=== PATIENT | female | born 1960 | race Caucasian/White ===

== ENCOUNTER 2017-04-09 08:23 | Outpatient (CLI) | payer BC ==
[~2017-04-09] VITALS: Ht 165.1 cm; Wt 98.6 kg
--- NOTE | ~2017-04-09 | HEMODYNAMI ---
PATIENT:ZURDO HAMMOND MEDICAL RECORD: [id number] : 56 LOCATION:[facility] ADMISSION DATE: 04/09/17 Generatedon:04/09/201711:23 Patient name: ZURDO HAMMOND Patient #: [id number] SSN: : 1960 Date of study: 04/09/2017 Page: Of Hemodynamic Procedure Report Patient Data Patient Demographics Procedure consent was obtained First Name: ZURDO Gender: Female Last Name: STEPHANY : 1960 [facility] Initial: ROSIO Age: 57 year(s) Patient #: [id number] Race: Unknown Additional ID: [id number] Contact details Address: [address] [place] [address] [facility] State: [place] City: [place] Zip code: [address] Past Medical History Allergies Allergen Reaction Date Comments Reported Other allergy 04/09/2017 Cipro Admission Admission Data Admission Date: 04/09/2017 Admission Time: 8:23 Height (in.): 65 BSA: 2.04 (m2) Height (cm.): 165.1 BMI: 35.78 (kg/m2) Weight (lbs.): 215 Weight (kg.): 97.52 Procedure Procedure Types Cath Procedure Diagnostic Procedure C [facility] w/Coronaries Miscellaneous Procedures Moderate Sedation up to 15 minutes Procedure Description Procedure Date Procedure Date: 04/09/2017 Procedure Start Time: 11:13 Procedure End Time: 11:20 Procedure Staff Name Function Issa Jimenez MD Performing Physician Halima Sanders RT Scrub Angella Taylor RN Nurse Quoc Venegas RN Director Of Staff Development Pauline Carty RT Monitor Procedure Data Cath Procedure Fluoroscopy Diagnostic fluoroscopy Total fluoroscopy Time: 0.6 time: 0.6 min min Diagnostic fluoroscopy Total fluoroscopy dose: 195 dose: 195 mGy mGy Contrast Material Contrast Material Type Amount (ml) Isovue 300 45 Entry Location Entry Primary Successful Side Size Upsize Upsize Entry Closure Succes sful Closure Location (Fr) 1 (Fr) 2 (Fr) Remarks Device Remarks Femoral Right 5 Fr Exoseal artery Estimated blood loss: 10 ml Diagnostic catheters Device Type Used For End Catheter Placement Cordis 5Fr JL 4.0 Procedure Catheter (MP) Cordis 5Fr Pigtail Ventriculography Catheter (MP) Cordis 5Fr 3DRC Catheter Procedure (MP) Procedure Complications No complications Procedure Medications Medication Administration Route Dosage Oxygen NC 2 l/min Lidocaine 2% added to field 20 Heparin Flush Bag added to field 2 bags (1000units/500ml NS) 0.9% NaCl I.V. 100 ml/hr Versed I.V. 1 mg Fentanyl I.V. 50 mcg Versed I.V. 1 mg Fentanyl I.V. 50 mcg Versed I.V. 1 mg Fentanyl I.V. 50 mcg Fentanyl I.V. 50 mcg Hemodynamics Rest BSA: 2.04 (m2) O2 Consumption: Estimated: 200.16 (ml/min) O2 Consumption indexed : Estimated:98.12 (ml/min/m) Heart Rate: 78 (bpm) Snapshots Pre Cath Intra NCS Post Cath Vital Signs Time Heart Resp SPO2 NIBP (mmHg) Rhythm Pain Sedation Rate (ipm) (%) Status Level (bpm) 10:57:16 78 16 100 144/92(107) NSR 0 (11) 10(A) , No pain 11:01:32 75 15 100 128/79(107) NSR 0 (11) 10(A) , No pain 11:05:44 75 19 93 113/69(105) NSR 0 (11) 10(A) , No pain 11:09:54 67 17 99 111/74(90) NSR 0 (11) 10(A) , No pain 11:14:04 64 16 95 116/73(108) NSR 0 (11) 9(A) , No pain 11:18:20 82 16 95 108/58(81) NSR 0 (11) 9(A) , No pain 11:22:52 69 8 98 98/64(87) NSR 0 (11) 10(A) , No pain Medications Time Medication Route Dose Verified Delivered Reason Notes Effe ctiveness by by 11:02:58 Oxygen NC 2 Issa Perales used for l/min Barbara Taylor liquor rectifier 11:03:08 Lidocaine 2% added 20ml Issa Parsons for local to vial Barbara Jimenez MD anesthetic field 11:03:15 Heparin Flush added 2 Issa Issa used for Bag to bags Barbara Jimenez MD procedure (1000units/500ml field NS) 11:03:24 0.9% NaCl I.V. 100 Issamary Garibayie Per ml/hr Barbara Taylor RN physician 11:08:58 Versed I.V. 1 mg Issa Buffie for Barbara Taylor RN sedation 11:09:03 Fentanyl I.V. 50 Issa Buffie for mcg Barbara Taylor RN sedation 11:11:00 Versed I.V. 1 mg Issa Buffie for Barbara Taylor RN sedation 11:11:04 Fentanyl I.V. 50 Issa Buffie for mcg Barbara Taylor RN sedation 11:15:39 Versed I.V. 1 mg Issa Buffie for Barbara Taylor RN sedation 11:15:43 Fentanyl I.V. 50 Issa Buffie for mcg Barbara Taylor RN sedation 11:18:37 Fentanyl I.V. 50 Issa Buffie for mcg Barbara Taylor RN sedation Procedure Log Time Note 10:54:15 Patient Height : 165.1 cm 10:54:20 Patient Weight : 97.52 kg 10:54:56 Diagnostic Cath status Elective 10:54:58 Quoc Venegas RN sent for patient. Start room use. 10:54:59 Time tracking: Regular hours 10:55:04 Plan of Care:Hemodynamics will remain stable., Cardiac rhythm will remain stable., Comfort level will be maintained., Respiratory function will remain adequate., Patient/ family verbilizes understanding of procedure., Procedure tolerated without complication., Recovers from procedure without complications.. 10:56:09 Patient received from Pre/Post Procedure Room to CCL 2 Alert and oriented. Tansferred to table in Supine position. 10:56:10 Warm blankets applied, and mich hugger turned on for patient comfort. 10:56:11 Correct patient and procedure confirmed by team. 10:56:13 Signed procedure consent form obtained from patient. 10:56:14 ECG and BP/O2 sat monitors applied to patient. 10:56:14 Vital chart was started 10:56:16 Baseline sample Acquired. 10:56:18 Full Disclosure recording started 10:56:28 H&P Date Dictated: 04/08/2017 Within 30 days and on chart., H&P Addendum completed by physician on day of procedure. (MUST COMPLETE FOR ALL OUTPATIENTS). 10:56:30 Pre-procedure instructions explained to patient. 10:56:32 Family in waiting room. 10:56:33 Patient NPO since Midnight. 10:56:50 Patient allergic to Other allergyCipro 10:56:55 Is the patient allergic to Iodine/contrast media? No. 10:56:57 Is patient on blood thinner?No 11:00:42 Patient diabetic? No. 11:00:50 Snore? No 11:00:52 Sleep apnea? No 11:01:01 Patient pain scale 0/10 ?. 11:01:10 IV patent on arrival in left forearm with 0.9% NaCl at [facility]. 11:01:17 Lab results completed and on chart. 11:01:21 Right groin area was prepped with chlora-prep and draped in sterile fashion 11:01:27 Alarms reviewed by R. N. 11::28 Sharps counted by scrub and verified by R.N. 11:01:28 Physician paged 11:02:58 Oxygen 2 l/min NC was administered by Angella Taylor RN; used for procedure; 11:03:08 Lidocaine 2% 20ml vial added to field was administered by Issa Jimenez MD; for local anesthetic; 11:03:15 Heparin Flush Bag (1000units/500ml NS) 2 bags added to field was administered by Issa Jimenez MD; used for procedure; 11:03:24 0.9% NaCl 100 ml/hr I.V. was administered by Angella Taylor RN; Per physician; 11:04:37 Use device set Femoral Dx 11:04:38 Acist Syringe opened to sterile field. 11:04:39 Bag Decanter opened to sterile field. 11:04:39 Medline Cath Pack opened to sterile field. 11:04:40 Terumo 5Fr [place] Sheath opened to sterile field. 11:04:41 St Wes 260cm J .035 wire opened to sterile field. 11:04:43 Acist Hand Control opened to sterile field. 11:04:44 Acist Manifold opened to sterile field. 11:04:44 Diagnostic Infinity 5Fr Multipack catheter opened to sterile field. 11:04:45 Tegaderm 4 x 4 opened to sterile field. 11:07:41 Physician arrived 11:08:20 Zero performed for pressure channel P1 11:08:24 Zero performed for pressure channel P1 11::37 --------ALL STOP TIME OUT------ 11::38 Final Timeout: patient, procedure, and site verified with staff and physician. All members of the team are in agreement. 11:08:40 Right groin site verified by team. 11:08:44 Sedation plan: IV Moderate Sedation Versed, Fentanyl 11::58 Versed 1 mg I.V. was administered by Angella Taylor RN; for sedation; 11:09:03 Fentanyl 50 mcg I.V. was administered by Angella Taylor RN; for sedation; 11:11:00 Versed 1 mg I.V. was administered by Angella Taylor RN; for sedation; 11:11:04 Fentanyl 50 mcg I.V. was administered by Angella Taylor RN; for sedation; 11:13:07 Procedure started. 11:13:29 Local anesthetic to right femoral artery with Lidocaine 2% by Issa Jimenez MD.INITIAL ACCESS ONLY 11:14:34 A 5 Fr sheath was inserted into the Right Femoral artery 11:15:29 A Cordis 5Fr JL 4.0 Catheter (MP) was advanced over the wire and used for Procedure. 11:15:39 Versed 1 mg I.V. was administered by Angella Taylor RN; for sedation; 11:15:42 A Cordis 5Fr Pigtail Catheter (MP) was advanced over the wire and used for Ventriculography. 11:15:43 Fentanyl 50 mcg I.V. was administered by Angella Taylor RN; for sedation; 11:15:48 Catheter removed. 11:16:03 A Cordis 5Fr 3DRC Catheter (MP) was advanced over the wire and used for Procedure. 11:16:10 EF : 55 % 11:16:58 Catheter removed. 11:18:20 Cordis 5Fr Exoseal opened to sterile field. 11:18:37 Fentanyl 50 mcg I.V. was administered by Angella Taylor RN; for sedation; 11:18:37 Sheath removed intact; hemostasis achieved with Exoseal to the Right Femoral artery. 11:18:41 Procedure ended.(Physican Out) 11:19:14 Fluoroscopy time 00.60 minutes. 11:19:21 Fluoroscopy dose: 195 mGy 11:19:21 Flurop Dose total: 195 11:19:24 Contrast amount:Isovue 300 45ml. 11:19:26 Sharps counted by scrub and verified by R.N. 11:19:28 Insertion/operative site no bleeding no hematoma. 11:19:38 Post-op/insertion site Right Femoral artery dressed using a 4 x 4 and Tegaderm. 11:19:41 Post right femoral artery:stable 11:19:45 Post Procedure Pulses reassessed and unchanged 11:19:51 Post procedure rhythm: unchanged. 11:19:54 Estimated blood loss: 10 ml 11:19:55 Post procedure instruction explained to patient.Patient verbalizes understanding. 11:20:04 Procedure and supply charges have been captured, reviewed, submitted and are correct. 11:20:22 Procedure Complication : No complications 11:20:44 Vital chart was stopped 11:20:47 See physician's report for complete and final results. 11:20:51 Report given to Pre/Post Procedure Room. 11:20:54 Patient transfered to Pre/Post Procedure Room with Stretcher. 11:20:57 Procedure ended. 11:20:57 Full Disclosure recording stopped 11:20:59 End room use (Document Last) Device Usage Item Name Manufacture Quantity Catalog Hospital Part Current Minimal Lo t# / Number Charge Number Stock Stock Serial# Code Acist Acist 1 13937 [id number] 552688 715371 20 Syringe [employer] Inc Bag Microtek 1 2002S 519818 51610 211364 5 Decanter Medical Inc. Medline Cardinal 1 [id number] 947713 36138 575620 5 Cath Pack Health Terumo 5Fr Terumo 1 [id number] 545535 061320 797281 [address] [place] [address] Wes 1 748631 219280 389102 690957 30 260cm J .035 wire Acist Hand Acist 1 21919 999603 578548 564570 5 Control Medical [employer] Inc Acist Acist 1 45451 468550 871933 247698 5 Manifold Medical Systems Inc Diagnostic Cardinal 1 [id number] 465040 65683 612114 30 Third Chickenity Health 5Fr Multipack catheter Tegaderm 4 3M 1 1626W 408462 121979 079969 5 x 4 Cordis 5Fr Cardinal 1 566838 5 JL 4.0 Health Catheter (MP) Cordis 5Fr Cardinal 1 634211 5 Pigtail Health Catheter (MP) Cordis 5Fr Cardinal 1 866752 5 3DRC Health Catheter (MP) Cordis 5Fr Cardinal 1 EX500 123826 867813 807101 10 [facility] Health Signature Audit [place] Stage Time Signature Unsigned Intra-Procedure 04/09/2017 Pauline Carty 11:23:31 AM RT(R) Signatures Monitor : Pauline Carty Signature : RT Date : Time : [id number] [place] [address]
[~2017-04-09 08:23] MED LIST: CRESTOR5 MG PO; JINTELI 1 MG-51 EACH PO; NORCO 10/325 TA1 TA1 PO; PRILOSEC20 MG; PRINIVIL20 MG PO; SYNTHROID25 MCG PO; TRILIPIX45 MG PO; TUMS500 MG PO; WELLBUTRIN XL150 M1 PO; ZANAFLEX4 MG
[2017-04-09] MEDS ORDERED: MAGNESIUM OXID250 MG PO (08:48)
[2017-04-09] MEDS ORDERED: TOPROL XL50 MG PO (08:49)
[2017-04-09] MEDS ORDERED: PRESERVISION AR1 CAP PO (08:50)
[2017-04-09] MEDS ORDERED: PEPCID20 MG PO (08:51)
[2017-04-09 08:55] VITALS: BP 144/81; Ht 165.1 cm; Wt 98.6 kg
[2017-04-09 09:08] LABS: BASOPHILS 0.3 % (0-2); EOSINOPHILS 1.9 % (0-7); HEMATOCRIT 41.8 % (36.0-48.0); HEMOGLOBIN 13.9 g/dL (12-16); IMMATURE GRANULOCYTES 0.3 % (0-5); MCHC 33.3 g/dL (31.0-37.0); MCV 93.1 fL (80.0-100.0); MEAN PLATELET VOLUME 9.5 fL (7.4-10.4); MONOCYTES 7.7 % (2-11); NEUTROPHILS 62.8 % (40-80); PLATELET COUNT 340 10x3/uL (130-400); RBC 4.49 10x6/uL (4.00-5.40); RDW 13.5 % (11.5-14.5); WBC 6.9 10x3/uL (4.8-10.8)
[2017-04-09 09:20] LABS: ANION GAP 13.2 mmol/L (8-16); CALCIUM 9.6 mg/dL (8.5-10.1); CARBON DIOXIDE 27.1 mmol/L (21.0-32.0); CREATININE - SERUM 0.9 mg/dL (0.6-1.3); POTASSIUM - SERUM 4.3 mmol/L (3.5-5.1)
--- NOTE | 2017-04-09 11:50 | NUR ---
2L NC, NO RESP DISTRESS NOTED. RIGHT GROIN 5F EXOSEAL CDI, NO BLEEDING OR HEMATOMA NOTED. NO C/O CHEST PAIN OR NAUSEA. VSS. AT BEDSIDE. WILL CONTINUE TO MONITOR.
--- NOTE | 2017-04-09 12:20 | NUR ---
2L NC, NO RESP DISTRESS NOTED. RIGHT GROIN 5F EXOSEAL CDI, NO BLEEDING OR HEMATOMA NOTED. NO C/O CHEST PAIN OR NAUSEA. VSS. CALL LIGHT WITHIN REACH.
--- NOTE | 2017-04-09 13:00 | NUR ---
HOB ELEVATED 30 DEGREES. NO BLEEDING NOTED TO RIGHT GROIN 5F EXOSEAL. SANDWICH TRAY AND DRINK GIVEN. NO C/O NAUSEA.
--- NOTE | 2017-04-09 13:18 | NUR ---
LEFT HAND PIV D/C'D WITH CATHETER INTACT, BAND AID TO SITE. UP TO BEDSIDE TO GET DRESSED.
--- NOTE | 2017-04-09 13:25 | NUR ---
DISCHARGE INSTRUCTIONS GIVEN, VERBALIZED UNDERSTANDING. TO RESTROOM TO VOID.
--- NOTE | 2017-04-09 13:32 | NUR ---
TAKEN OUT VIA WHEELCHAIR BY CATH CONSULTANT TECHNOLOGY. LEFT FACILITY WITH FAMILY MEMBER AND ALL PERSONAL BELONGINGS.
--- NOTE | 2017-04-11 13:34 | OP ---
PATIENT NAME: ZURDO HAMMOND MEDICAL RECORD: [id number] :56 LOCATION:D.CAT ADMISSION DATE: SURGEON: TARAH COOK MD DATE OF OPERATION: 04/09/2017 PROCEDURES: 1. Left heart catheterization. 2. Selective coronary angiography. 3. Left ventriculogram. INDICATION: Chest pain compatible with angina. PROCEDURE IN DETAIL: After informed consent was obtained and after detailed explanation of risks, benefits as well as alternative therapies, the patient elected to proceed with angiogram and heart catheterization. The right femoral area was prepped and draped in normal sterile fashion. The right femoral artery was cannulated via modified Seldinger technique with placement of 6-[place] sheath. All catheters exchanged through this sheath. FINDINGS: Left ventriculogram was performed in the standard 30-degree MOSQUERA view, reveals good cardiac wall motion throughout all segments. Overall ejection fraction estimated 60%. SELECTIVE CORONARY ANGIOGRAPHY: Left main, left anterior descending, left circumflex, right coronary are all smooth-walled vessels with no angiographic evidence of coronary artery disease. OVERALL IMPRESSION: 1. No angiographic evidence of coronary artery disease. 2. Normal left heart pressures. 3. Normal left ventricular systolic function. Chest pain is noncardiac in etiology. No further cardiac workup needs to be ascertained. TRANSINT:[id number] Voice Confirmation ID: [id number] DOCUMENT ID: [id number] TARAH COOK MD at 1334 CC: [id number] DICTATION DATE: 04/09/17 1120 MOBILE GAME ENGINEER: 04/09/17 1619 [facility] CLI 04/09/17 [place] [id number] [place] [id number]
== END 2017-04-09 13:32 | disposition home or self-care (01) ==
LOC: D.CATH 08:23
PROVIDERS: Internal Medicine Interventional Cardiology
DX: R07.89 Other chest pain (principal); Z01.812 Encounter for preprocedural laboratory examination

== ENCOUNTER → 2019-12-20 08:51 | Outpatient (CLI) | payer BC ==
[2017-04-09 08:55] VITALS: BMI 36.1
[~2019-12-20 08:51] MED LIST changes: +MAGNESIUM OXID250 MG PO; +PEPCID20 MG PO; +PRESERVISION AR1 CAP PO; +TOPROL XL50 MG PO
== END | disposition home or self-care (01) ==
LOC: D.HCCARDIO 08:51
PROVIDERS: ATTEND Internal Medicine Cardiovascular Disease
DX: I20.9 Angina pectoris, unspecified (principal)

== ENCOUNTER 2019-12-27 08:04 | Outpatient (CLI) | payer BC ==
[~2019-12-27] VITALS: Ht 165.1 cm; Wt 104.5 kg
--- NOTE | ~2019-12-27 | HEMODYNAMI ---
PATIENT:ZURDO HAMMOND MEDICAL RECORD: [id number] : 56 LOCATION:[facility] ADMISSION DATE: 12/27/19 Generatedon:12/27/201911:41 Patient name: ZURDO HAMMOND Patient #: [id number] SSN: : 1960 Date of study: 12/27/2019 Page: Of Hemodynamic Procedure Report Patient Data Patient Demographics Procedure consent was obtained First Name: ZURDO Gender: Female Last Name: STEPHANY : 1960 Middle Initial: ROSIO Age: 59 year(s) Patient #: [id number] Race: Unknown Additional ID: [id number] Contact details [address] [address] [place] [address] [facility] State: [place] City: [place] Zip code: [address] Past Medical History Allergies Allergen Reaction Date Comments Reported Other allergy 04/09/2017 Cipro Other allergy 12/27/2019 cIPRO Admission Admission Data Admission Date: 12/27/2019 Admission Time: 8:04 Arrival Date: 12/27/2019 Arrival Time: 0:00 Admit Source: Other Insurance Payor: Private health insurance [facility] #: [id number] Height (in.): 65 BSA: 2.1 (m2) Height (cm.): 165.1 BMI: 38.35 (kg/m2) Weight (lbs.): 230.47 Weight (kg.): 104.54 Lab Results Lab Result Date: 12/27/2019 Lab Result Time: 9:28 Biochemistry Name Units Result Min Max BUN mg/dl 17 --(---*)-- 7 18 Creatinine mg/dl 0.6 --(*---)-- 0.6 1.3 CBC Name Units Result Min Max Hematocrit % 38.7 *-(----)-- 42 54 Hemoglobin g/dl 12.7 -*(----)-- 13.5 17.5 Procedure Procedure Types Cath Procedure Diagnostic Procedure LHC LHC w/Coronaries Sedation Charges Moderate Sedation up to 15 minutes Procedure Description Procedure Date Procedure Date: 12/27/2019 Procedure Start Time: 11:24 Procedure End Time: 11:38 Procedure Staff Name Function Domo Soriano MD Performing Physician Milo Meyers RT Monitor Samia Matos RT Scrub Angella Taylor RN Nurse Procedure Data Cath Procedure Fluoroscopy Diagnostic fluoroscopy Total fluoroscopy Time: 1.2 time: 1.2 min min Diagnostic fluoroscopy Total fluoroscopy dose: 297 dose: 297 mGy mGy Contrast Material Contrast Material Type Amount (ml) Isovue 300 60 Entry Location Entry Primary Successful Side Size Upsize Upsize Entry Closure Succes sful Closure Location (Fr) 1 (Fr) 2 (Fr) Remarks Device Remarks Femoral Right 5 Fr Exoseal artery Estimated blood loss: 5 ml Diagnostic catheters Device Type Used For End Catheter Placement MULTIPACK JL 4.0 5Fr Procedure catheter MULTIPACK 3DRC 5Fr Procedure catheter DIAGNOSTIC Pigtail 5Fr Procedure catheter ([id number]) Procedure Complications No complications Procedure Medications Medication Administration Route Dosage Oxygen etCO2 Nasal cannula 2 l/min Lidocaine 2% added to field 20 Heparin Flush Bag added to field 2 bags (1000units/500ml NS) 0.9% NaCl I.V. 100 ml/hr Versed I.V. 1 mg Fentanyl I.V. 50 mcg Versed I.V. 1 mg Fentanyl I.V. 50 mcg Versed I.V. 1 mg Hemodynamics Rest BSA: 2.1 (m2) HGB: 12.7 (g/dl) O2 Consumption: Estimated: 201.62 (ml/min) O2 Con sumption indexed: Estimated:96.01 (ml/min/m) Heart Rate: 74 (bpm) Pressure Samples Time Site Value (mmHg) Purpose Heart Use Rate(bpm) 11:32 LV 124/3,17 Snapshot 67 Gradients Valve Time Site Site Mean SEP/DFP Peak To Heart Use 1 2 (mmHg) (sec/min) Peak Rate (mmHg) (bpm) Aortic 11:32 LV AO 71 Snapshots Pre Cath Intra NCS Post Cath Vital Signs Time Heart Resp SPO2 etCO2 NIBP (mmHg) Rhythm Pain Sedation Rate (ipm) (%) (mmHg) Status Level (bpm) 11:17:41 68 13 92 21.2 126/81(95) NSR 0 (11) 10(A) , No pain 11:22:01 66 25 98 40.1 130/77(101) NSR 0 (11) 10(A) , No pain 11:26:23 68 15 98 39.3 138/77(86) NSR 0 (11) 10(A) , No pain 11:30:47 64 13 97 38.6 121/82(96) NSR 0 (11) 9(A) , No pain 11:35:03 82 16 98 40.1 134/84(97) NSR 0 (11) 10(A) , No pain Medications Time Medication Route Dose Verified Delivered Reason Notes Eff ectiveness by by 11:17:06 Oxygen etCO2 2 Domo Buffie used for Nasal l/min Bo Taylor RN procedure cannula 11:17:14 Lidocaine 2% added 20ml Doom Domo for local to vial Bo Soriano MD anesthetic field 11:17:21 Heparin Flush added 2 Domo Domo used for Bag to bags Bo Soriano MD procedure (1000units/500ml field NS) 11:17:30 0.9% NaCl I.V. 100 Domo Buffie Per ml/hr Bo Taylor RN physician 11:23:34 Versed I.V. 1 mg Domo Buffie for Bo Taylor RN sedation 11:23:40 Fentanyl I.V. 50 Domo Buffie for mcg Bo Taylor RN sedation 11:27:01 Versed I.V. 1 mg Domo Buffie for Bo Taylor RN sedation 11:27:05 Fentanyl I.V. 50 Domo Buffie for mcg Bo Taylor RN sedation 11:32:06 Versed I.V. 1 mg Domo Buffie for Bo Taylor RN sedation Procedure Log Time Note 10:47:30 Diagnostic Cath Status : Elective 10:47:37 Arrival Date: 12/27/2019 12:00:00 AM 10:47:38 Admit Source: Other 10:47:48 Patient Height : 65 inches 10:47:52 Patient Weight : 230.47 lbs 10:48:03 Procedure Status Elective Heart Cath (OP). 10:48:05 Time tracking: Regular hours (M-F 7:00 - 5:00) 10:48:10 Plan of Care:Hemodynamics will remain stable., Cardiac rhythm will remain stable., Comfort level will be maintained., Respiratory function will remain adequate., Patient/ family verbilizes understanding of procedure., Procedure tolerated without complication., Recovers from procedure without complications.. 10:52:30 Angella Taylor RN sent for patient. Start room use. 11:01:28 Called and spoke with family of pt, [place] and update given. 11:02:42 Insurance Payor : Private health insurance 11:05:19 Lab Result : BUN 17 mg/dl 11:05:19 Lab Result : Creatinine 0.6 mg/dl 11:05:19 Lab Result : Hematocrit 38.7 % 11:05:19 Lab Result : Hemoglobin 12.7 g/dl 11:05:34 Patient received from Pre/Post Procedure Room to CCL 1 Alert and oriented. Tansferred to table in Supine position. 11:05:37 Warm blankets applied, and mich hugger turned on for patient comfort. 11:05:38 Signed procedure consent form obtained from patient. 11:05:39 Correct patient and procedure confirmed by team. 11:05:39 ECG and BP/O2 sat monitors applied to patient. 11:05:49 H&P Date Dictated: 12/13/2019 Within 30 days and on chart., H&P Addendum completed by physician on day of procedure. (MUST COMPLETE FOR ALL OUTPATIENTS). 11:05:50 Pre-procedure instructions explained to patient. 11:05:50 Pre-op teaching completed and patient verbalized understanding. 11:05:52 Family unavailable. 11:05:53 Patient NPO since Midnight. 11:06:04 Patient allergic to Other allergycIPRO 11:16:33 Vital chart was started 11:16:51 Baseline sample Acquired. 11:16:53 Rhythm: sinus rhythm 11:16:55 Full Disclosure recording started 11:16:58 Is the patient allergic to Iodine/contrast media? No. 11:17:00 Is patient on blood thinner?No 11:17:01 Patient diabetic? No. 11:17:03 Previous problem with sedation/anesthesia? No ? 11:17:04 Snore? No 11:17:04 Sleep apnea? No 11:17:05 Deviated septum? No 11:17:06 Oxygen 2 l/min etCO2 Nasal cannula was administered by Angella Taylor RN; used for procedure; Verbal order read back and verified. 11:17:06 Opens mouth fully? Yes 11:17:06 Sticks out tongue? Yes 11:17:09 Airway obstruction? No ? 11:17:13 Dentures? Yes IN TIGHT 11:17:14 Lidocaine 2% 20ml vial added to field was administered by Domo Soriano MD; for local anesthetic; Verbal order read back and verified. 11:17:20 Pre procedure: right dorsailis pedis pulse 2+ Normal; easily identifiable; not easily obliterated 11:17:21 Heparin Flush Bag (1000units/500ml NS) 2 bags added to field was administered by Domo Soriano MD; used for procedure; Verbal order read back and verified. 11:17:24 Patient pain scale 0/10 ?. 11:17:29 IV patent on arrival in left forearm with 0.9% NaCl at [facility]. 11:17:30 0.9% NaCl 100 ml/hr I.V. was administered by Angella Taylor RN; Per physician; Verbal order read back and verified. 11:17:32 Lab results completed and on chart. 11:21:44 Stress Test: no; normal ANTERIOR 11:21:59 Risk of Mortality: <1.% 11:22:06 Risk of blood transfusion: 0.1% 11:22:12 Risk of FREDY: 0.6% 11:22:16 Right groin area was prepped with chlora-prep and draped in sterile fashion 11:22:17 Alarms reviewed by R. N. 11:22:17 Sharps counted by scrub and verified by R.N. 11:22:18 Physician arrived 11:22:18 --------ALL STOP TIME OUT------ 11:22:19 Final Timeout: patient, procedure, and site verified with staff and physician. All members of the team are in agreement. 11:22:20 Right groin site verified by team. 11:22:23 Fire Safety Assessment: A--An alcohol-based skin anteseptic being used preoperatively., C--Open oxygen or nitrous oxide is being used., D--An ESU, laser, or fiber-optic light is being used. 11:22:26 Physical assessment completed. ASA score P 2 - A patient with mild systemic disease as per Domo Soriano MD. 11:22:31 1) 90+ Normal kidney functon but urine findings or structural abnormalities or genetic trait point to kidney disease. 11:22:33 Maximum allowable contrast dose (3.7 X eGFR X 0.75)250 ml. 11:22:37 Sedation plan: IV Moderate Sedation Medication:Versed, Fentanyl 11:22:39 Use device set Femoral Dx 11:22:39 ACIST Syringe (01313) opened to sterile field. 11:22:40 Bag Decanter (2002S) opened to sterile field. 11:22:40 Medline Cath Pack ([id number]) opened to sterile field. 11:22:42 ACIST Manifold (80527) opened to sterile field. 11:22:43 ACIST Hand Control (00360) opened to sterile field. 11:22:44 EMERALD Guide Wire (502-660) opened to sterile field. 11:22:45 SHEATH 5FR [place] (CQM455) opened to sterile field. 11:22:46 Tegaderm 4 x 4 (1626W) opened to sterile field. 11:22:46 DIAGNOSTIC Multipack 5Fr catheter set (TC4028) opened to sterile field. 11:23:24 Zero performed for pressure channel P1 11:23:34 Versed 1 mg I.V. was administered by Angella Taylor RN; for sedation; Verbal order read back and verified. 11:23:40 Fentanyl 50 mcg I.V. was administered by Angella Taylor RN; for sedation; Verbal order read back and verified. 11:24:22 Procedure started. 11:24:25 Local anesthetic to right femoral artery with Lidocaine 2% by Domo Soriano MD.INITIAL ACCESS ONLY 11:24:30 A 5 Fr sheath was inserted into the Right Femoral artery 11:26:17 A MULTIPACK JL 4.0 5Fr catheter was advanced over the wire and used for Procedure. 11:27:01 Versed 1 mg I.V. was administered by Angella Taylor RN; for sedation; Verbal order read back and verified. 11:27:05 Fentanyl 50 mcg I.V. was administered by Angella Taylor RN; for sedation; Verbal order read back and verified. 11:27:26 LCA angiography performed. 11:28:37 Catheter exchanged over wire. 11:28:42 A MULTIPACK 3DRC 5Fr catheter was advanced over the wire and used for Procedure. 11:29:20 RCA angiography performed. 11:29:43 Catheter exchanged over wire. 11:29:47 A DIAGNOSTIC Pigtail 5Fr catheter ([id number]) was advanced over the wire and used for Procedure. 11:32:06 Versed 1 mg I.V. was administered by Angella Taylor RN; for sedation; Verbal order read back and verified. 11:32:33 LV gram done using MOSQUERA 11:32:37 Injector settings: Ml/sec: 10, Volume: 20, 11:32:39 LV hemodynamics recorded. 11:32:43 EF : 55 % 11:32:51 Catheter removed. 11:33:10 EXOSEAL 5Fr (EX500) opened to sterile field. 11:33:17 Sheath removed intact; hemostasis achieved with Exoseal to the Right Femoral artery. 11:33:18 Procedure ended.(Physican Out) 11:33:30 Fluoroscopy time 01.20 minutes. 11:33:35 Flurop Dose total: 297 11:33:35 Fluoroscopy dose: 297 mGy 11:34:37 Dose Area Product 28179 mGy/cm. 11:34:41 Contrast amount:Isovue 300 60ml. 11:34:44 Maximum allowable dose exceeded? No. 11:34:45 Sharps counted by scrub and verified by R.N. 11:35:18 Insertion/operative site no bleeding no hematoma. 11:35:20 Post-op/insertion site Right Femoral artery dressed using a 4 x 4 and Tegaderm. 11:35:23 Post right femoral artery:stable, soft, clean and dry 11:35:26 Post Procedure Pulses reassessed and unchanged 11:36:10 Post-procedure physical assessment completed. ASA score P 2 - A patient with mild systemic disease as per Domo Soriano MD. 11:36:12 Post procedure rhythm: unchanged. 11:36:15 Estimated blood loss: 5 ml 11:36:17 Post procedure instruction explained to patient.Patient verbalizes understanding. 11:36:17 Patient needs reinforcement of post procedure teaching. 11:36:41 Procedure type changed to Cath procedure, Diagnostic procedure, LHC, LHC w/Coronaries, Sedation Charges, Moderate Sedation up to 15 minutes 11:37:43 Procedure and supply charges have been captured, reviewed, submitted and are correct. 11:37:47 Procedure Complication : No complications 11:37:50 Vital chart was stopped 11:38:03 Operative report dictated upon procedure completion. 11:38:04 See physician's report for complete and final results. 11:38:05 Report given to Pre/Post Procedure Room. 11:38:07 Patient transfered to Pre/Post Procedure Room with Stretcher. 11:38:09 Procedure ended. 11:38:09 Full Disclosure recording stopped 11:38:13 End room use (Document Last) Device Usage Item Name Manufacture Quantity Catalog Hospital Part Current Minimal L ot# / Number Charge Number Stock Stock Serial# Code ACIST Acist 1 [id number] [id number] 201777 [id number] 20 Syringe Medical (22314) Systems Inc Bag Microtek 1 2001S [id number] 09195 330866 5 Decanter Medical Inc. () Medline Medline 1 [id number] 73740 251123 5 Cath Pack ([id number]) ACIST Acist 1 21619 559616 230734 503329 5 Manifold Medical (12896) Systems Inc ACIST Hand Acist 1 66996 518097 943825 267739 5 Control Medical (93913) Systems Inc EMERALD Cardinal 1 502-455 048560 497979 142919 5 Guide Wire Health (502-455) SHEATH 5FR Terumo 1 [id number] 759275 544417 070993 5 [place] (NQB547) Tegaderm 4 3M 1 1626W 036909 912158 285851 5 x 4 (1626W) DIAGNOSTIC Cardinal 1 [id number] 475263 52390 269808 30 Multipack Health 5Fr catheter set (WH7986) MULTIPACK Cardinal 1 767813 5 JL 4.0 5Fr Health catheter MULTIPACK Cardinal 1 335936 5 3DRC 5Fr Health catheter EXOSEAL 5Fr Cardinal 1 EX500 227256 135861 781324 10 (EX500) Health DIAGNOSTIC Cardinal 1 [id number] 032096 870816 338522 5 Pigtail 5Fr Health catheter ([id number]) Signature Audit [place] Stage Time Signature Unsigned Intra-Procedure 12/27/2019 Angella Taylor 11:39:27 AM RN; Milo Meyers RT(R); Domo Soriano MD [id number] [place] [address]
[2019-12-27] MEDS ORDERED: NORMODYNE / TR300 MG PO (09:21)
[2019-12-27] MEDS ORDERED: ISOSORBIDE DINI30 MG PO (09:21)
[2019-12-27] MEDS ORDERED: CATAPRES0.1 MG PO (09:21)
[2019-12-27] MEDS ORDERED: TYLENOL PM1 TAB PO (09:22)
[2019-12-27] MEDS ORDERED: B-12 DOTS500 MCG PO (09:22)
[2019-12-27 09:31] VITALS: BP 144/86; Ht 165.1 cm; Wt 104.5 kg
[2019-12-27 09:35] LABS: HEMATOCRIT 38.7 % (36.0-48.0); HEMOGLOBIN 12.7 g/dL (12-16); LYMPHOCYTES 29.1 % (15-50); MCH 30.5 pg (26.0-34.0); MCHC 32.8 g/dL (31.0-37.0); MEAN PLATELET VOLUME 8.8 fL (7.4-10.4); NEUTROPHILS 60.8 % (40-80); PLATELET COUNT 310 10x3/uL (130-400); RBC 4.16 10x6/uL (4.00-5.40); RDW 12.5 % (11.5-14.5); WBC 5.2 10x3/uL (4.8-10.8)
[2019-12-27 09:56] LABS: ALT (SGPT) 33 U/L (10-68); CALC OSMOLALITY 277 mosm/kg (275-300); CALCIUM 9.2 mg/dL (8.5-10.1); CARBON DIOXIDE 23.9 mmol/L (21.0-32.0); CHLORIDE - SERUM 105 mmol/L (98-107); CHOL - HDL RATIO 6.2 ratio (2.3-4.1); CHOLESTEROL, TOTAL 180 mg/dL (0-200); CREATININE - SERUM 0.6 mg/dL (0.6-1.3); GLUCOSE 97 mg/dL (74-106); HDL CHOLESTEROL 29 mg/dL (32-96); LDL CHOLESTEROL 91 mg/dL (0-100); LDL-HDL RATIO 3.1 ratio (1.5-3.5); POTASSIUM - SERUM 4.2 mmol/L (3.5-5.1); SODIUM 138 mmol/L (136-145); TRIGLYCERIDE 304 mg/dL (30-200); UREA NITROGEN 17 mg/dL (7-18); eGFR NON AFRICAN AMERICAN > 90 mL/min (90-120)
--- NOTE | 2019-12-27 11:55 | NUR ---
PT RECEIVED BACK TO ROOM FROM ACCOUNT STRATEGIST VIA STRETCHER. PT DROWSY BUT VERBALLY AROUSABLE. PT DENIES PAIN OR DISCOMFORT. IV PATENT INFUSING VIA ORDERS TO L ARM. R GROIN W 5FR EXOCELE, DRESSING CDI NO S/S HEMATOMA OR BLEEDING. LEG PINK AND WARM, PEDAL PULSES PALPABLE. PT INSTRUCTED TO KEEP HEAD FLAT ON PILLOW AND LEG STRAIGHT, SHE VERBALIZED UNDERSTANDING. PT PLACED ON CARDIAC MONITORS AND O2 VIA NC AT 2L. HR NSR 66, BP 135/72, RR 11, SAT 99. CALL LIGHT IN REACH.
--- NOTE | 2019-12-27 12:15 | NUR ---
R GROIN SOFT, DRESSING REMAINS CDI NO S/S HEMATOMA OR BLEEDING. VSS, HR 68, BP 115/63, RR 15. PT DENIES PAIN OR DISCOMFORT. PEDAL PULSES PALPABLE. CALL LIGHT IN REACH. DAUGHTER NOTIFIED OR DISCHARGE PLAN PER PT REQUEST.
--- NOTE | 2019-12-27 13:00 | NUR ---
R GROIN SOFT, DRESSING REMAINS CDI NO S/S HEMATOMA OR BLEEDING. HOB ELEVATED, SANDWICH AND DRINK SERVED. PT DENIES PAIN OR OTHER NEEDS AT THIS TIME. VSS. CALL LIGHT IN REACH
--- NOTE | 2019-12-27 13:33 | NUR ---
PT RESTING COMFORTABLY. R GROIN DRESSING REMAINS CDI NO S/S HEMATOMA OR BLEEDING. PT TOLERATED LUNCH W/O NAUSEA. CALL LIGHT IN REACH. VSS.
--- NOTE | 2019-12-27 13:52 | NUR ---
DISCHARGE INSTRUCTIONS REVIEWED W PT, SHE VERBALIZED UNDERSTANDING. IV REMOVED W CATH INTACT, MONITORS REMOVED. R GROIN REMAINS SOFT, DRESSING CDI NO S/S HEMATOMA NOTED. PT UP TO DRESS FOR DISCHARGE.
--- NOTE | 2019-12-27 14:00 | NUR ---
PT AMBULATED TO BR, VOIDING W/O DIFFICULITY. PT THEN DISCHARGED VIA WC TO WAITING IN PRIVATE VEHICLE. PT HAD ALL BELONGINGS AND DISCHARGE PAPERWORK IN HAND.
== END 2019-12-27 14:00 | disposition home or self-care (01) ==
LOC: D.CATH 08:04
PROVIDERS: ATTEND Internal Medicine Cardiovascular Disease
DX: I20.9 Angina pectoris, unspecified (principal); I10 Essential (primary) hypertension

== ENCOUNTER → 2020-10-20 12:16 | Outpatient (CLI) | payer BC ==
[2019-12-27 09:31] VITALS: BMI 38.3
[~2020-10-20 12:16] MED LIST changes: +B-12 DOTS500 MCG PO; +CATAPRES0.1 MG PO; +ISOSORBIDE DINI30 MG PO; +NORMODYNE / TR300 MG PO; +TYLENOL PM1 TAB PO
== END | disposition home or self-care (01) ==
LOC: D.MRI 12:16
PROVIDERS: ATTEND Orthopaedic Surgery
DX: M54.16 Radiculopathy, lumbar region (principal)